=== PATIENT | male | born 1985 | race Caucasian/White ===

== ENCOUNTER → 2021-02-20 | Day surgery (SDC) | payer BC ==
[2021-02-19 11:12] LABS: INR 0.96
[2021-02-19 11:13] LABS: PARTIAL THROMBOPLASTIN TIME 25.2 seconds (23.8-35.5)
[2021-02-19 11:14] LABS: ANION GAP 15.8 mmol/L (8-16); CALCIUM 9.2 mg/dL (8.4-10.2); CREATININE, SERUM 1.09 mg/dL (0.72-1.25); POTASSIUM 4.8 mmol/L (3.5-5.1)
[~2021-02-20] MED LIST: ACETAMINOPHEN325 M1 PO; ADDERALL XR 3030 MG PO; AMLODIPINE BESY10 MG PO; HYDROCODON-ACE1 EA12 PO; IBUPROFEN200 MG PO; LISINOPRIL-HCT1 EAC1 PO; SODIUM CHLORIDE 0.9% 50ML 100 ML ONE; UNISOM50 MG PO
[2021-02-20 10:00] VITALS: BP 131/83
== END | disposition home or self-care (01) ==
LOC: OR 06:41
PROVIDERS: ATTEND Neurological Surgery
DX: G56.01 Carpal tunnel syndrome, right upper limb (principal); I10 Essential (primary) hypertension; Z01.810 Encounter for preprocedural cardiovascular examination; Z01.812 Encounter for preprocedural laboratory examination; Z20.822 Contact with and (suspected) exposure to COVID-19; Z68.31 Body mass index [BMI] 31.0-31.9, adult
CPT/HCPCS: 36415; 64721; 80048; 85610; 85730; 93005; J0690; U0002